=== PATIENT | male | born 1970 | race Caucasian/White ===

== ENCOUNTER 2018-10-18 14:44 | Emergency (ER) | payer OTHER ==
--- NOTE | 2018-10-18 14:49 | EDM.PDOC ---
ED HPI GENERAL MEDICAL PROBLEM - General Stated Complaint: MEDICAL CLEARANCE Time Seen by Provider: 10/18/18 14:46 - History of Present Illness INITIAL COMMENTS - FREE TEXT/NARRATIVE: HISTORY AND PHYSICAL: History of present illness: Patient is a 47-year-old white male presents in custody of law enforcement for medical clearance patient has no complaints. Review of systems: As per history of present illness and below otherwise all systems reviewed and negative. Past medical history: As per history of present illness and as reviewed below otherwise noncontributory. Surgical history: As per history of present illness and as reviewed below otherwise noncontributory. Social history: No reported history of drug or alcohol abuse. Family history: As per history of present illness and as reviewed below otherwise noncontributory. Physical exam: HEENT: Atraumatic, normocephalic, pupils reactive, negative for conjunctival pallor or scleral icterus, mucous membranes moist, throat clear, neck supple, nontender, trachea midline. Lungs: Clear to auscultation, breath sounds equal bilaterally, chest nontender. Heart: S1S2, regular, negative for clicks, rubs, or JVD. Abdomen: Soft, nondistended, nontender. Negative for masses or hepatosplenomegaly. Negative for costovertebral tenderness. Pelvis: Stable nontender. Genitourinary: Deferred. Rectal: Deferred. Extremities: Atraumatic, negative for cords or calf pain. Neurovascular unremarkable. Neuro: Awake, alert, follows commands and moves all extremities nonfocal exam Diagnostics: None Therapeutics: None Impression: #1 medically clear for incarceration/police hold #2 medical screening exam Definitive disposition and diagnosis as appropriate pending reevaluation and review of above. - Related Data Allergies Allergy/AdvReac Type Severity Reaction Status Date / Time No Known Allergies Allergy Verified 11/16/15 13:17 Home Meds: Home Meds Acetaminophen/HYDROcodone [[place] 325-10 MG] 1 - 2 tab PO Q4H PRN #80 tablet [Rx] Past Medical History HEENT History: Reports: None Cardiovascular History: Reports: None Respiratory History: Reports: None Gastrointestinal History: Reports: Hiatal Hernia Genitourinary History: Reports: None Musculoskeletal History: Reports: None Neurological History: Reports: None Psychiatric History: Reports: None Endocrine/Metabolic History: Reports: None Hematologic History: Reports: None Immunologic History: Reports: None Oncologic (Cancer) History: Reports: None Dermatologic History: Reports: None - Past Surgical History GI Surgical History: Reports: Mariann Fundoplication ED ROS GENERAL - Review of Systems Review Of Systems: ROS reveals no pertinent complaints other than HPI. ED EXAM, GENERAL - Physical Exam Exam: See Below (See dictation) Departure - Departure Time of Disposition: 14:48 Disposition: Home, Self-Care 01 Condition: Good Clinical Impression: Medical clearance for incarceration, Encounter for medical screening examination - Discharge Information Additional Instructions: The following information is given to patients seen in the emergency department who are being discharged to home. This information is to outline your options for follow-up care. We provide all patients seen in our emergency department with a follow-up referral. The need for follow-up, as well as the timing and circumstances, are variable depending upon the specifics of your emergency department visit. If you don't have a primary care physician on staff, we will provide you with a referral. We always advise you to contact your personal physician following an emergency department visit to inform them of the circumstance of the visit and for follow-up with them and/or the need for any referrals to a consulting specialist. The emergency department will also refer you to a specialist when appropriate. This referral assures that you have the opportunity for followup care with a specialist. All of these measure are taken in an effort to provide you with optimal care, which includes your followup. Under all circumstances we always encourage you to contact your private physician who remains a resource for coordinating your care. When calling for followup care, please make the office aware that this follow-up is from your recent emergency room visit. If for any reason you are refused follow-up, please contact the [facility] emergency department at and asked to speak to the emergency department charge nurse. Follow-up primary medical doctor as needed as discussed return as needed as discussed
[2018-10-18 14:50] VITALS: BP 144/90
== END 2018-10-18 14:55 | disposition home or self-care (01) ==
LOC: MW.ED 14:44
DX: Z02.89 Encounter for other administrative examinations (principal)
CPT/HCPCS: 99283

== ENCOUNTER 2019-07-22 09:57 | Day surgery (SDC) | payer OTHER ==
[~2019-07-22 09:57] MED LIST: Lactated Ringers 1,000 ML IV SCH; ceFAZolin 2 GM in Premix Bag 1 BAG IV SCH
--- NOTE | 2019-07-22 11:07 | PCM.PREANE ---
Preanesthetic Assessment - Anesthesia/Transfusion/Family Hx Anesthesia History: Prior Anesthesia Reaction Other Type of Anesthesia Reaction Comment: "wakes up angery" Family History of Anesthesia Reaction: No Transfusion History: No Prior Transfusion(s) - Review of Systems General: No Symptoms Pulmonary: No Symptoms Cardiovascular: No Symptoms Gastrointestinal: No Symptoms Neurological: No Symptoms Other: Reports: None - Physical Assessment Height: 6 ft Weight: 81.647 kg Mental Status: Alert & Oriented x3 Dentition: Reports: Normal Dentition ROM/Head Extension: Full Lungs: Clear to Auscultation, Normal Respiratory Effort Cardiovascular: Regular Rate, Regular Rhythm - Allergies Allergies/Adverse Reactions: Allergies Allergy/AdvReac Type Severity Reaction Status Date / Time acetaminophen [From Vicodin] AdvReac Intermediate Vomiting Verified 07/22/19 10: 59 hydrocodone [From Vicodin] AdvReac Intermediate Vomiting Verified 07/22/19 10:59 - Blood Blood Available: No - Anesthesia Plan Pre-Op Medication Ordered: None - Acknowledgements Anesthesia Type Planned: General Anesthesia Pt an Appropriate Candidate for the Planned Anesthesia: Yes Alternatives and Risks of Anesthesia Discussed w Pt/Guardian: Yes Pt/Guardian Understands and Agrees with Anesthesia Plan: Yes Additional Comments: PMH: angry wakeup from anesthesia PLAN: ga/lma PreAnesthesia Questionnaire - Past Health History Medical/Surgical History: Denies Medical/Surgical History HEENT History: Reports: None Cardiovascular History: Reports: None Respiratory History: Reports: None Gastrointestinal History: Reports: Hiatal Hernia Genitourinary History: Reports: None Musculoskeletal History: Reports: None Neurological History: Reports: None Psychiatric History: Reports: None Endocrine/Metabolic History: Reports: None Hematologic History: Reports: None Immunologic History: Reports: None Oncologic (Cancer) History: Reports: None Dermatologic History: Reports: None - Infectious Disease History Infectious Disease History: Reports: None - Past Surgical History Head Surgeries/Procedures: Reports: None HEENT Surgical History: Reports: None Cardiovascular Surgical History: Reports: None Respiratory Surgical History: Reports: None GI Surgical History: Reports: Mariann Fundoplication Male Surgical History: Reports: Vasectomy Endocrine Surgical History: Reports: None Neurological Surgical History: Reports: None Musculoskeletal Surgical History: Reports: Arthroscopic Knee, Shoulder Surgery Other Musculoskeletal Surgeries/Procedures:: rt knee ACL repair, left shoulder repair Oncologic Surgical History: Reports: None Dermatological Surgical History: Reports: None - SUBSTANCE USE Smoking Status *Q: Never Smoker Tobacco Use Within Last Twelve Months: Other (See Below) - HOME MEDS Home Medications: Home Meds . [No Known Home Meds] 10/18/18 [History] - CURRENT (IN HOUSE) MEDS Current Meds: Current Medications Cefazolin Sodium/Dextrose 2 gm (/ Premix) 50 mls @ 100 mls/hr IV ONCALL JORJE Lactated Ringer's (Ringers, Lactated) 1,000 mls @ 100 mls/hr IV ASDIRECTED JORJE
[2019-07-22] MEDS ORDERED: fentaNYL 100 MCG/2 ML SDV ONE ×2 (11:44→12:48)
[2019-07-22] MEDS ORDERED: Propofol 200 MG/20 ML SDV ONE (11:44)
[2019-07-22] MEDS ORDERED: Midazolam 1 MG/ML 2 ML SDV ONE (11:45)
[2019-07-22] MEDS ORDERED: Lidocaine 2% 5 ML SDV ONE (11:45)
[2019-07-22] MEDS ORDERED: ceFAZolin/Dextrose,Iso-Osmotic 2 GM/50 ML Duplex Bag IV ONE (11:48)
[2019-07-22] MEDS ORDERED: Bupivacaine 0.5%/EPINEPHrine 1:200,000 10 ML SDV ONE (12:25)
[2019-07-22] MEDS ORDERED: Ondansetron 4 MG/2 ML SDV ONE (12:43)
[2019-07-22] MEDS ORDERED: Dexamethasone 4 MG/ML 5 ML MDV ONE (12:43)
[2019-07-22] MEDS ORDERED: 50% Dextrose in Water 50 ML Syringe IVPUSH PRN (12:44)
[2019-07-22] MEDS ORDERED: EPINEPHrine 1:10,000 1 MG/10 ML Syringe IVPUSH PRN (12:44)
[2019-07-22] MEDS ORDERED: Albuterol 0.083% 2.5 MG/3 ML Neb Soln NEB PRN (12:44)
[2019-07-22] MEDS ORDERED: Naloxone 0.4 MG/ML Syringe IVPUSH PRN (12:44)
[2019-07-22] MEDS ORDERED: Atropine 0.1 MG/ML 10 ML Syringe IVPUSH PRN ×2 (12:44)
[2019-07-22] MEDS ORDERED: fentaNYL 250 MCG/5 ML SDV ONE (12:47)
--- NOTE | 2019-07-22 13:32 | PCM.OPNOTE ---
- General Post-Op/Procedure Note Date of Surgery/Procedure: 07/22/19 Operative Procedure(s): right distal biceps repair Findings: right distal biceps tear Pre Op Diagnosis: right distal biceps tear Post-Op Diagnosis: Same Anesthesia Technique: General ET Tube Primary Surgeon: Mick Hackett Kennel Manager: Guera Wolff EBL in mLs: 25 Complications: None Condition: Good
[2019-07-22] MEDS: fentaNYL 100 MCG/2 ML SDV IVPUSH PRN ×2 (14:05→14:13)
[2019-07-22] MEDS: HYDROmorphone 2 MG/ML Syringe IVPUSH ONE ×2 (14:28→14:36)
[2019-07-22] MEDS ORDERED: Ketorolac 30 MG/ML SDV IVPUSH ONE (14:40)
[2019-07-22] MEDS ORDERED: Ketorolac 30 MG/ML SDV ONE (14:42)
[2019-07-22] MEDS ORDERED: Acetaminophen/oxyCODONE 325-5 MG Tab PO ONE (15:21)
--- NOTE | 2019-07-22 15:31 | PCM.POSTAN ---
POST ANESTHESIA ASSESSMENT - MENTAL STATUS Mental Status: Alert, Oriented - VITAL SIGNS Vital Signs: Last Vital Signs Temp 36.3 C 07/22/19 13:54 Pulse 59 L 07/22/19 15:21 Resp 12 07/22/19 15:21 BP 135/75 07/22/19 15:21 Pulse Ox 97 07/22/19 15:21 - RESPIRATORY Respiratory Status: Respiratory Rate WNL, Airway Patent, O2 Saturation Stable - CARDIOVASCULAR CV Status: Pulse Rate WNL, Blood Pressure Stable - GASTROINTESTINAL GI Status: No Symptoms - PAIN Pain Score: 8 Free Text/Narrative:: Patient has received Ofirmev, Toradol, Dilaudid 2 mg and Fentanyl in PACU. Resting comfortably but still rating pain 8/10. May go to pre op and get his Percocet there. Spoke with Dr Blair and Joy Gardner CRNA. They agree with the plan.
--- NOTE | 2019-07-22 16:15 | OR ---
SURGEON: Mick Hackett DATE OF PROCEDURE: 07/22/2019 PREOPERATIVE DIAGNOSIS: Right distal biceps tendon tear. POSTOPERATIVE DIAGNOSIS: Right distal biceps tendon tear. PROCEDURE: Right distal biceps tendon reconstruction. PRIMARY SURGEON: Mick Hackett DO. LABORER ROAD: SARAH Licea. ROLE OF LABORER ROAD: Nurse practitioner, SARAH Licea, played an essential role in assisting in this case, helping to position the patient, retract structures as needed, as well as suturing and cutting sutures as indicated. Her presence improved patient's safety and decreased operative time. ANESTHESIA: General endotracheal intubation. FLUID: Lactated Ringer's solution. ESTIMATED BLOOD LOSS: 25 mL. COMPLICATIONS: None. SPECIMENS: None. DISCHARGE DISPOSITION: Stable to PACU. HISTORY AND INDICATIONS FOR THE PROCEDURE: The patient was seen preoperatively in the clinic. He was treated nonoperatively, which failed. Preoperative imaging confirmed the above- mentioned diagnosis. Risks and benefits of the procedure were explained to the patient. Informed consent was obtained. DETAILS OF PROCEDURE: The patient was seen preoperatively by myself and the Anesthesia staff in the preoperative holding area where the operative site was marked. He was brought to the operative suite by the Anesthesia staff where general anesthesia was administered. All extremities were found to be well padded. A well-padded tourniquet was placed on the right arm, but was never inflated during the case. The right upper extremity was then prepped and draped in a sterile manner. Time- out was called identifying the correct patient, the correct procedure, the correct site, and that antibiotics had been given within appropriate period of time. An S-incision was made over the proximal brachioradialis extending then medially and then again proximally. Bleeding was controlled with Bovie electrocautery. Metzenbaums were used for dissection. The lateral antebrachial cutaneous nerve was not seen during the case. The cephalic vein was identified and retracted. The fascia next to the brachioradialis fascia was carefully dissected through with Naren. Radial recurrent vessels were ligated with 4-0 silk. The biceps tendon was noted, and I followed this down to the radial tuberosity, keeping the hand in supination. One of the tendons, which was more radial had been retracted and was degenerative. I then drilled and placed the anchor in place. I then did one regular horizontal mattress to bring the tendon back to the anchor and then I did a Krackow stitch on the other anchor and tied both sides of the sutures together. We then irrigated copiously with saline and closed with Stratafix and nylon and then placed a Betadine-soaked Adaptic dressing and placed the patient into a hinged elbow brace, locked at 90 degrees. The patient was then allowed to awaken from general anesthesia, taken to the PACU in stable condition. [id number] / MODL /[id number]
--- NOTE | 2019-07-22 16:19 | PCM48HPAN ---
Post Anesthesia Note - EVALUATION WITHIN 48HRS OF ANESTHETIC Vital Signs in Normal Range: Yes Patient Participated in Evaluation: Yes Respiratory Function Stable: Yes Airway Patent: Yes Cardiovascular Function Stable: Yes Hydration Status Stable: Yes Pain Control Satisfactory: Yes (rating pain 3-4/10) Nausea and Vomiting Control Satisfactory: Yes Mental Status Recovered: Yes Vital Signs: Last Vital Signs Temp 36.3 C 07/22/19 13:54 Pulse 65 07/22/19 15:31 Resp 12 07/22/19 15:31 BP 134/72 07/22/19 15:31 Pulse Ox 95 07/22/19 15:31
[2019-07-22 16:55] VITALS: BP 146/78; PULSE 57
== END 2019-07-22 16:25 | disposition home or self-care (01) ==
LOC: MW.SDS 09:57
PROVIDERS: ATTEND Orthopaedic Surgery
DX: S46.211A Strain of muscle, fascia and tendon of other parts of biceps, right arm, initial encounter (principal); Z98.890 Other specified postprocedural states; Z88.8 Allergy status to other drugs, medicaments and biological substances; X58.XXXA Exposure to other specified factors, initial encounter
CPT/HCPCS: 24342; A9270; C1776; J0131; J0690; J1100; J1170; J1885; J2001; J2250; J2405; J2704; J3010; J3490; J7120